=== PATIENT | male | born 1955 | race Two or more races ===

== ENCOUNTER 2025-01-28 08:39 | Outpatient (CLI) | payer OTHER | END 2025-01-28 08:50 | disposition home or self-care (01) | LOC: SONOGRAMA 08:39 | PROVIDERS: ATTEND Urology | DX: N40.1 Benign prostatic hyperplasia with lower urinary tract symptoms (principal); R35.0 Frequency of micturition; R35.1 Nocturia; F17.200 Nicotine dependence, unspecified, uncomplicated ==